=== PATIENT | female | born 1930 | race African-American/Black ===

== ENCOUNTER 2016-12-21 16:50 | Inpatient (IN) | payer MEDICARE, BC ==
--- NOTE | ~2016-12-21 | HP ---
History And Physical [place] [id number] [facility] [place]. [address] NAME: JENN SUAREZ : [birth year] STATUS : ADM IN [facility]#: [id number] AGE: 86 ADM/REG DATE : 12/21/16 MR#: [id number] REPORT SERV DATE: 12/22/16 DICTATED BY: WEN CRUZ DATE: 12/22/16 REPORT STATUS : Draft TRANSCRIBED BY: MODL DATE: 12/22/16 DATE OF ADMISSION: 12/21/2016 CHIEF COMPLAINT: Elevated heart rate, sent from clinic. HISTORY OF PRESENT ILLNESS: The patient is an 86-year-old female with past medical history of atrial fibrillation, pacer history, esophageal stricture history, coronary artery disease with PCI pacemaker for sick sinus syndrome, COPD, chronic diastolic heart failure, chronic elevated troponin, CKD, and anticoagulation for atrial fibrillation with Eliquis who presents after having increased heart rate, told to be in atrial fibrillation with RVR, and subsequent increased weakness. The patient is accompanied by family member who also reports that the patient has had significant amount of sinus congestion with increased pain in sinus passages, went to her clinic appointment today, and was told that she had elevated heart rate, presumptive in clinic of her atrial fibrillation with RVR and additionally thrush. Symptoms of heart rate were mild but weakness has been moderate, and sinusitis has been moderate. The patient does have pain with pressure at the sinus areas. No chest pain or radiating symptoms but has had mild nausea, no vomiting. No fevers or chills. No diarrhea, but has been pronounced weak, has had palpitation type feelings, but no wheezing. Symptoms of heart rate, there were no worsening symptoms but no relieving symptoms either. The patient has had mild change in appetite secondary to pain in nasal passage and overall generalized weakness. Symptoms are still currently present. REVIEW OF SYSTEMS: GENERAL: No fevers or chills, but positive for weakness. EYES: No eye pain or visual changes. ENT: Sinus congestion pain, tenderness on left side of nares and pain. NEURO: Positive headache from sinus pain but no confusion. SKIN: No rash or bruising. RESPIRATORY: No shortness of breath or dyspnea on exertion. CV: Does have rapid heart rate, edema. No current chest pain. GI: No nausea or vomiting. : No dysuria or hematuria. MUSCULOSKELETAL: Myalgias, arthralgias above baseline. ENDO: Does have increased fatigue. No polyuria. HEME: No recurrent bleeding or bruising. IMMUNOLOGIC: Positive for rhinorrhea. PSYCH: No anxiety or confusion. PAST MEDICAL HISTORY: Noted for chronic esophagitis and esophageal stricture, followed by Dr. Howe, atrial fibrillation on Eliquis and coronary disease with PCI, pacemaker for sick sinus syndrome, followed by Dr. Newberry. COPD, currently was presumably smoking followed by Dr. Hernandes, hypertension, peripheral arterial disease, DVT, history of the past chronic diastolic heart failure, chronic troponinemia, and CKD followed by Dr. Earl. SOCIAL HISTORY: Seventy pack-year smoking history. No alcohol or illicits. History And Physical [address] [address] NAME: JENN SUAREZ : [birth year] STATUS : ADM IN [facility]#: [id number] AGE: 86 ADM/REG DATE : 12/21/16 MR#: [id number] REPORT SERV DATE: 12/22/16 DICTATED BY: WEN CRUZ DATE: 12/22/16 REPORT STATUS : Draft TRANSCRIBED BY: AL DATE: 12/22/16 SURGICAL HISTORY: PCI pacemaker, abdominal hysterectomy. ALLERGIES: TO LISINOPRIL AND CEFADROXIL. HOME MEDICATIONS: DuoNeb, Ventolin, Eliquis, Symbicort, BuSpar, Cipro, Plavix, Pepcid, Uloric, fentanyl, Lasix, Neurontin, Ativan, Singulair, Percocet, Protonix, potassium, Crestor and lxaw-rtq-oldgloc gel. FAMILY HISTORY: Stroke and cancer. PHYSICAL EXAMINATION: VITAL SIGNS: The patient's blood pressure 117/76, temperature 97.3, pulse ranging from 103 to 115, respirations 16, and O2 sats 98%. GENERAL: Elderly frail, obese. EYES: No scleral icterus. EOMI. ENT: Does have left-sided nares tenderness with erythema, does have maxillary tenderness, congestion, poor dentition and oral thrush. NECK: Supple without JVD. RESPIRATORY: Clear to auscultation in upper lung montalvo. No wheezes. CHEST: Equal chest expansion. CV: Irregularly irregular and tachycardic. No rubs. Bilateral edema. GI: Soft, nontender, nondistended. Bowel sounds positive. Negative fluid wave. : Deferred. MUSCULOSKELETAL: Moves all extremities x4. SKIN: Warm and dry. LYMPH: Bilateral 2+ to 3+ edema. HEME: No bleeding or bruising. NEURO: Alert and oriented. Moves all extremities x4, but does have weakness in lower extremities secondary to edema. PSYCH: Appropriate mood and affect. DATA: EKG: [place] flutter with rate 103, QTc 429, low voltage criteria. WBC count 18.1, H and H 12.7/39.4, MCV 77, platelets 233. PA and lateral; mild cardiomegaly pacer. No acute findings. BNP 1407. Urinalysis; trace leukocyte esterase, negative nitrites, few bacteria. ASSESSMENT AND PLAN: 1. Atrial flutter/atrial fibrillation. 2. Elevated BNP. 3. Sinusitis. 4. Troponin elevation. 5. Chronic kidney disease. 6. Systemic inflammatory response syndrome. 7. Irregular CT. 8. Sick sinus syndrome. 9. Thrush. History And Physical [address] [address] NAME: JENN SUAREZ : [birth year] STATUS : ADM IN [facility]#: [id number] AGE: 86 ADM/REG DATE : 12/21/16 MR#: [id number] REPORT SERV DATE: 12/22/16 DICTATED BY: WEN CRUZ DATE: 12/22/16 REPORT STATUS : Draft TRANSCRIBED BY: AL DATE: 12/22/16 PLAN: 1. For atrial flutter, atrial fibrillation discussed with ED. Her ED has discussed with Dr. Trenton Newberry, did initiation. Recommend further workup for sinusitis, possible trigger for decompensation of atrial fibrillation. The patient has not been on rate controlling medications due to hypotensive blood pressure history but is currently still on anticoagulation with Eliquis. 2. Elevated BNP, does have diastolic component but family does not report having heart failure. Last echocardiogram 55% to 60% in December 2015, does have chronic elevated troponin. I will repeat echocardiogram. I will ask Dr. Newberry evaluation, may require repeating echocardiogram, likely multifactorial with flutter pattern, chronic elevated troponin, and CKD status. 3. Sinusitis. Antibiotics. Check cultures and procalcitonin. 4. Troponin elevation. She does have chronic troponin elevation but slightly above baseline on serial troponins, currently on Eliquis. 5. CKD. Follows with Dr. Earl, monitor. 6. SIRS, antibiotic treatment for sinusitis and thrush, does have tachycardia, and leukocytosis. 7. Irregular CT, is currently following Dr. Hernandes's surveillance. Follow up PCP. 8. Sick sinus syndrome. Does have pacer. 9. Thrush, nystatin. 10.Disposition; pending results and treatment from above. I anticipate greater than two midnight inpatient stay. DDN/MODL Wen Cruz MD / [id number] CC: Melita Menendez M.D.
--- NOTE | ~2016-12-21 | DS ---
Discharge Summary [facility] [address] [place]. [address] NAME: EJNN SUAREZ : [birth year] STATUS : DIS IN PAT#: [id number] AGE: 86 ADM/REG DATE : 12/21/16 MR#: [id number] REPORT SERV DATE: 12/29/16 DICTATED BY: MARCUS ANN DATE: 12/28/16 REPORT STATUS : Draft TRANSCRIBED BY: MODL DATE: 12/28/16 ADMISSION DATE: 12/21/2016 DISCHARGE DATE: 12/28/2016 REASON FOR ADMISSION: Atrial fibrillation with RVR and acute on chronic diastolic heart failure exacerbation. HISTORY OF PRESENT ILLNESS: Please refer Dr. Cesar Noland's history and physical dated 12/21/2016 for complete details regarding the patient's admission. In brief, the patient was admitted to the Hospitalist Service for management of her atrial fibrillation with RVR, acute on chronic diastolic heart failure exacerbation, and sinusitis. HOSPITAL COURSE: The patient had an uncomplicated hospital course. 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 He had recommended a one-time diuresis with IV diuretics, which had worked. He had started her on digoxin to help with rate control. She is now rate controlled. She did have some hypotensive episodes for which she received some IV fluids. She continued to complain of some nose pain and described what felt like sinusitis. She was started on antibiotics, but it was not improving. I obtained a CT scan of her head and sinuses, which showed clear sinuses. CT scan of the head showed mild atrophy and chronic white matter gliosis. Given the fact that this patient had clear sinuses, we stopped her antibiotics and started her on Flonase and it eventually helped out her nose pain. She worked with Physical Therapy, who recommended rehab, and we are discharging her today to [facility] for rehab as we are waiting for a bed to become available. She has reached maximal hospitalization and will be discharged to rehab in stable condition. DISCHARGE DIAGNOSES: Nose pain; atrial fibrillation with rapid ventricular response, now controlled; chronic kidney disease stage 3; debility; history of sick sinus syndrome; carotid artery disease. PROCEDURES: Include CT scan of the head, CT scan of the sinuses. CONSULTATION: Dr. Newberry. DISCHARGE MEDICATIONS: Include Eliquis 2.5 mg twice a day, BuSpar 5 mg three times a day, Plavix 75 mg daily, fentanyl patch every 72 hours, Singulair 10 mg daily, Protonix 40 mg daily, Symbicort daily, albuterol daily, DuoNebs p.r.n., Crestor 20 mg at bedtime, Neurontin 300 mg p.r.n. pain, Lasix 40 mg a day, Uloric 40 mg p.r.n., Ativan 1 mg at bedtime as needed for sleep, Pepcid 20 mg. We are holding her potassium chloride and her Percocet, as she did not require any in the hospital. She will follow up with Dr. Newberry as scheduled. Spending over 30 minutes in discharge planning and coordination of care on Ms. Suarez. REGAN/AL Discharge Summary [address] [address] NAME: JENN SUAREZ : [birth year] STATUS : DIS IN PAT#: [id number] AGE: 86 ADM/REG DATE : 12/21/16 MR#: [id number] REPORT SERV DATE: 12/29/16 DICTATED BY: MARCUS ANN DATE: 12/28/16 REPORT STATUS : Draft TRANSCRIBED BY: AL DATE: 12/28/16 Marcus Ann MD / [id number] CC: MD Phoenix Chavarria M.D.
--- NOTE | ~2016-12-21 | CN ---
Consultation Report [facility] [address] [place]. [address] NAME: JENN SUAREZ : [birth year] STATUS : ADM IN PAT#: [id number] AGE: 86 ADM/REG DATE : 12/21/16 MR#: [id number] REPORT SERV DATE: 12/22/16 DICTATED BY: HAVEN NEWBERRY DATE: 12/22/16 REPORT STATUS : Draft TRANSCRIBED BY: MODL DATE: 12/22/16 CONSULTATION DATE OF CONSULTATION: 12/22/2016 REASON FOR CONSULTATION: Atrial fibrillation/flutter and presumed congestive heart failure. HPI: This is an 86-year-old woman, followed by Dr. Phoenix Burgos, known to me from prior care, has history of chronic diastolic LV failure and systolic LV failure recently with 07/03 left ventriculography demonstrating LVEF 40%, paroxysmal atrial fibrillation and flutter with [id number] score of at least 4 and on low-dose Eliquis, peripheral vascular disease, type 2 diabetes, hypertension, chronic kidney disease class 3 or 4, mild aortic stenosis, and carotid disease. The patient presented to the emergency room yesterday with increased shortness of breath. She was found to have atrial fibrillation with rapid ventricular response. Ventricular rate was slowed with digoxin administration. She feels well now. In general, the patient denies recent chest pain. She has been compliant with medications by report. PAST MEDICAL HISTORY: 1. PVD-bilateral SFA occlusions with mildly diminished ABIs. 2. DM2. 3. Hypertension. 4. Remote cigarette smoker. 5. Dyslipidemia. 6. CAD-2.25 x 12 Taxus Atom stent to mid AV groove circumflex artery remotely; 4.0 x 15 Xience stent proximal RCA remotely, 07/03 catheterization with ulceration proximal LAD, widely patent AV groove circumflex stent and luminal irregularities in right coronary artery. 7. Chronic LV diastolic failure. 8. LV systolic failure-07/03 LVEF 40%. 9. Sleep apnea-treated. 10.Chronic kidney disease-12/04, EGFR 23. 11.Peripheral neuropathy. 12.Sick sinus syndrome-permanent pacemaker followed [facility]. 13.COPD. 14.Atrial fibrillation and flutter-05/01 [id number] score of 6 and on Eliquis. 15.Gouty arthritis. 16.Aortic stenosis-06/02 echo estimating aortic valve area 2.1 cm2. 17.Carotid disease-12/31 duplex with less than 50% bilateral ICA stenoses. 18.Stroke-12/31 presumed stroke with [facility] admission. Consultation Report [place] [id number] [place]. [address] NAME: JENN SUAREZ : [birth year] STATUS : ADM IN PAT#: [id number] AGE: 86 ADM/REG DATE : 12/21/16 MR#: [id number] REPORT SERV DATE: 12/22/16 DICTATED BY: HAVEN NEWBERRY DATE: 12/22/16 REPORT STATUS : Draft TRANSCRIBED BY: AL DATE: 12/22/16 HOME MEDICATIONS: Singulair 10 mg daily, oxycodone/APAP 10/325 three times a day p.r.n., lorazepam 1 mg p.r.n., Protonix 40 mg daily, fentanyl 50 mcg/hr patch q.72 hours, Colace 100 mg b.i.d., gabapentin 300 mg twice a day, Mucinex 600 mg extended release, mirtazapine 15 mg once a day, albuterol sulfate 2 puffs every 4 hours p.r.n., Ventolin inhaler 2 puffs every 4 hours p.r.n., Symbicort 160/4.5 mcg/act, Plavix 75 mg daily, BuSpar 5 mg t.i.d., Crestor 20 mg daily, Eliquis 2.5 mg b.i.d., Lasix 60 mg q.a.m. and 40 mg q.p.m., glipizide XL 5 mg daily, Uloric 40 mg daily, KCl 10 mEq b.i.d., lidocaine patch p.r.n. ALLERGIES: TO LISINOPRIL AND CEFADROXIL. SOCIAL HISTORY: The patient is . She is a former smoker. She does not drink alcohol. FAMILY HISTORY: No first-degree relatives with history of premature coronary artery disease. REVIEW OF SYSTEMS: Chronic weakness. PHYSICAL EXAMINATION: GENERAL: Weak but in no acute distress. VITAL SIGNS: 126/63, respirations 16, temperature 97.0, pulse 90 and regular. LUNGS: Diminished breath sounds at bases. NECK: No bruit. CARDIAC: III/ systolic murmur. EXTREMITIES: Bilateral leg cuffs. LABORATORY DATA: BUN and creatinine 52 and 1.76 yielding EGFR 29. White blood cell count 17,600, hematocrit 38.9%, platelet count 227. BNP 1407. TSH 1.36. Troponin-I 1.26, 1.29, 1.62. EKG, atrial flutter with high-grade block, ventricular rate 100, QS complexes V1 through V5 consistent with age indeterminate anterior wall myocardial infarction. ASSESSMENT AND PLAN: 1. Positive troponin-suspect type 2 myocardial infarction due to high ventricular rate in atrial fibrillation/flutter. We will continue Plavix. Serial markers. If necessary, may proceed with myocardial perfusion imaging and/or cardiac catheterization though renal function may be prohibitive of contrast administration. 2. Paroxysmal atrial fibrillation/flutter-now rate controlled after digoxin. We will continue Eliquis given [id number] score of 6. 3. Acute LV diastolic and systolic heart failure-better after diuresis. We will avoid NOE inhibitors. Get an ARB given her chronic kidney disease. 4. Sick-sinus syndrome-permanent pacemaker noted. 5. Elevated cholesterol-treated. 6. Chronic obstructive pulmonary disease-noted. Consultation Report [address] [address] NAME: JENN SUAREZ : [birth year] STATUS : ADM IN [facility]#: [id number] AGE: 86 ADM/REG DATE : 12/21/16 MR#: [id number] REPORT SERV DATE: 12/22/16 DICTATED BY: HAVEN NEWBERRY. DATE: 12/22/16 REPORT STATUS : Draft TRANSCRIBED BY: MODL DATE: 12/22/16 7. Hypertension-reasonable values noted today. 8. Chronic kidney disease-3 and 4-noted. 9. Aortic stenosis-mild. Thank you for this consultation. /AL Haven Newberry M.D. / [id number] CC: Melita Menendez M.D.
[2016-12-21 12:31] LABS: BASOPHILS 0.1 %; BASOPHILS ABSOLUTE 0.01 10/3/uL (0.0-0.16); EOSINOPHILS 0.1 %; EOSINOPHILS ABSOLUTE 0.01 10/3/uL (0.0-0.53); ER CBC TAT 0 Hrs 05 Mins; HEMATOCRIT 39.4 % (36.0-48.0); HEMOGLOBIN 12.7 g/dL (12.0-16.0); IMMATURE GRANULOCYTES 0.6 %; IMMATURE GRANULOCYTES ABSOLUTE 0.11 10/3/uL (0.0-0.11); LYMPHOCYTES 9.1 %; LYMPHOCYTES ABSOLUTE 1.65 10/3/uL (0.67-4.30); MANUAL DIFF NO %; MEAN CORPUS HGB CONC 32.2 g/dL (32.0-36.0); MEAN CORPUSCULAR HEMOGLOB 24.8 pg (26.0-34.0); MEAN PLATELET VOLUME 9.9 fL (9.2-13.0); MONOCYTES 7.1 %; MONOCYTES ABSOLUTE 1.28 10/3/uL (0.21-1.20); NEUTROPHILS ABSOLUTE 15.08 10/3/uL (2.02-8.40); PLATELET COUNT 233 10/3/uL (150-400); RBC DISTRIBUTION WIDTH 16.3 % (12.0-16.0); RED CELL COUNT 5.12 10/6/uL (4.0-5.6); WHITE BLOOD CELLS 18.1 10/3/uL (4.5-10.5)
[2016-12-21 12:38] LABS: INTERNATIONAL NORMAL RATI 1.3 UNITS (-); PARTIAL THROMBO TIME 24.6 SEC (22.5-37.2); PROTIME (NOT ORD) 16.3 SEC (12.0-14.5)
[2016-12-21 12:48] LABS: BUN (BLOOD UREA NITROGEN) 57 MG/DL (6-23); CHLORIDE, SERUM 92 MMOL/L (96-112); CO2 (CARBON DIOXIDE) 34 MMOL/L (24-34); CREATININE 1.99 MG/DL (0.55-1.02); GFR AFRICAN AMERICAN 25 ML/MIN (>=60); GFR NON AFRICAN AMERICAN 22 ML/MIN (>=60); GLUCOSE, SERUM 220 MG/DL (60-99); POTASSIUM, SERUM 4.8 MMOL/L (3.5-5.3); SODIUM, SERUM 134 MMOL/L (135-148)
[2016-12-21 12:49] LABS: CHEST PAIN PROFILE TAT 0 Hrs 23 Mins; TROPONIN I 1.26 NG/ML (<0.05)
[~2016-12-21 16:50] MED LIST: *UNABLE1; ALBUTEROL5 INH; ASA5GR PO; ASAB PO; ASABAYER PO; ATRONASAL6 NAS; ATV.5 PO; ATV1 PO; AVAP150 PO; AVAPRO; AVAPRO75 PO; BLINK EYE OPH; BUM2 PO; BUSPAR5 PO; CELEBREX2 PO; CIP2 PO; COLCRYS0.6 MG PO; CRESTOR; CRESTOR20 MG PO; CRESTOR40 MG PO; CYMBALTA30 PO; DCN100 PO; DULERA 200 MCG/13 GM INH; DUONEB INH; DURA25 TOP; DURA50 TOP; DURICEF PO; ELIQUIS 2.5 MG2.5 MG PO; GAS-X80 MG PO; GLUCATROL; GLUCOTROL5 PO; GLUCXL5 PO; KEPPRA250 PO; KLOR-CON 1010 MEQ PO; KLOR-CON M1010 MEQ PO; L20 PO; L40 PO; LEVSINTAB PO/SL; LEVSINTAB SL; LEXAPRO20 PO; LIDODERM T; LIDODERM TOP; LIQUID TEARS OPH; METHOC500B PO; NEUR300 PO; NEXIUM40 PO; OTC PAIN CREAM TOP; PEP20 PO; PERCOCET 10/3251 TAB PO; PERCOCET1 TA4 PO; PLAVIX PO; PROAIR HFA INH; PROTONIX PO; PROVENTSOL INH; REM15 PO; RESCUE INHALER PO; SINGULAIR1 PO; SYMAX-SL0.125 MG PO; SYMBICORT; SYMBICORT 160/41 INH INH; T200 PO; TAGAMET 200 MG200 MG PO; TOPXL25 PO; ULORIC40 MG PO; VENTOLIN HFA INH; VENTOLIN HFA PO; VITC500 PO; VITD PO; Z100 PO
[2016-12-21 17:30] LABS: ASCORBIC ACID (UR NOT ORDER) NEG (NEG); BILIRUBIN, URINE NEGATIVE (NEG); ER URINALYSIS TAT 0 Hrs 22 Mins; KETONE, URINE NEGATIVE (NEG); LEUKOCYTE ESTERASE(NOT OR TRACE (NEG); NITRITE (URINE) NEG (NEG); WBC (NOT ORDERED) (RFLEX) 3 (0-5)
[2016-12-21 21:46] LABS: SGOT(AST) 49 U/L (5-40); SGPT(ALT) 84 U/L (5-65); TOTAL PROTEIN 7.3 G/DL (6.0-8.5)
[2016-12-21 21:48] LABS: A/G RATIO 0.8 (0.7-1.9); ALBUMIN 3.3 G/DL (3.5-5.0); ALKALINE PHOSPHATASE 93 U/L (45-117); PHOSPHORUS, SERUM 3.7 MG/DL (2.5-4.5); TOTAL BILIRUBIN 0.5 MG/DL (0-1.2)
[2016-12-21 22:23] LABS: PROCALCITONIN 0.07 ng/mL (<0.5)
[2016-12-22 05:34] LABS: BASOPHILS 0.1 %; BASOPHILS ABSOLUTE 0.01 10/3/uL (0.0-0.16); EOSINOPHILS 0.2 %; EOSINOPHILS ABSOLUTE 0.04 10/3/uL (0.0-0.53); HEMATOCRIT 38.9 % (36.0-48.0); HEMOGLOBIN 12.7 g/dL (12.0-16.0); IMMATURE GRANULOCYTES 0.5 %; IMMATURE GRANULOCYTES ABSOLUTE 0.08 10/3/uL (0.0-0.11); LYMPHOCYTES 9.2 %; LYMPHOCYTES ABSOLUTE 1.62 10/3/uL (0.67-4.30); MEAN CORPUS HGB CONC 32.6 g/dL (32.0-36.0); MEAN CORPUSCULAR HEMOGLOB 25.5 pg (26.0-34.0); MEAN CORPUSCULAR VOLUME 78.1 fL (80-100); MEAN PLATELET VOLUME 10.3 fL (9.2-13.0); NEUTROPHILS ABSOLUTE 14.43 10/3/uL (2.02-8.40); NUCLEATED RED BLOOD CELLS 0.3 /100WBC (0-0); PLATELET COUNT 227 10/3/uL (150-400); RBC DISTRIBUTION WIDTH 16.3 % (12.0-16.0); RED CELL COUNT 4.98 10/6/uL (4.0-5.6); WHITE BLOOD CELLS 17.6 10/3/uL (4.5-10.5)
[2016-12-22 05:36] LABS: MANUAL DIFF NO %
[2016-12-22 05:44] LABS: A/G RATIO 0.8 (0.7-1.9); ALBUMIN 2.9 G/DL (3.5-5.0); CALCIUM, SERUM 9.5 MG/DL (8.5-10.4); CHLORIDE, SERUM 94 MMOL/L (96-112); CO2 (CARBON DIOXIDE) 31 MMOL/L (24-34); CREATININE 1.76 MG/DL (0.55-1.02); GFR AFRICAN AMERICAN 29 ML/MIN (>=60); GFR NON AFRICAN AMERICAN 25 ML/MIN (>=60); GLOBULIN 3.7 G/DL (2.5-4.1); SGOT(AST) 39 U/L (5-40); SGPT(ALT) 58 U/L (5-65); SODIUM, SERUM 134 MMOL/L (135-148); TOTAL BILIRUBIN 0.9 MG/DL (0-1.2); TOTAL PROTEIN 6.6 G/DL (6.0-8.5)
[2016-12-22 05:45] LABS: ALKALINE PHOSPHATASE 76 U/L (45-117); BUN (BLOOD UREA NITROGEN) 52 MG/DL (6-23); GLUCOSE, SERUM 171 MG/DL (60-99); TROPONIN I 1.62 NG/ML (<0.05)
[2016-12-23 05:33] LABS: BASOPHILS 0.1 %; BASOPHILS ABSOLUTE 0.01 10/3/uL (0.0-0.16); EOSINOPHILS 0.1 %; EOSINOPHILS ABSOLUTE 0.01 10/3/uL (0.0-0.53); HEMATOCRIT 37.8 % (36.0-48.0); HEMOGLOBIN 12.3 g/dL (12.0-16.0); IMMATURE GRANULOCYTES 0.4 %; IMMATURE GRANULOCYTES ABSOLUTE 0.05 10/3/uL (0.0-0.11); LYMPHOCYTES 7.2 %; MEAN CORPUS HGB CONC 32.5 g/dL (32.0-36.0); MEAN CORPUSCULAR HEMOGLOB 25.5 pg (26.0-34.0); MEAN CORPUSCULAR VOLUME 78.3 fL (80-100); MEAN PLATELET VOLUME 9.8 fL (9.2-13.0); MONOCYTES 6.7 %; MONOCYTES ABSOLUTE 0.94 10/3/uL (0.21-1.20); NEUTROPHILS 85.5 %; NEUTROPHILS ABSOLUTE 11.97 10/3/uL (2.02-8.40); NUCLEATED RED BLOOD CELLS 0.3 /100WBC (0-0); PLATELET COUNT 196 10/3/uL (150-400); RBC DISTRIBUTION WIDTH 16.2 % (12.0-16.0); RED CELL COUNT 4.83 10/6/uL (4.0-5.6)
[2016-12-23 05:34] LABS: MANUAL DIFF NO %
[2016-12-23 05:40] LABS: CALCIUM, SERUM 9.4 MG/DL (8.5-10.4); CHLORIDE, SERUM 92 MMOL/L (96-112); CO2 (CARBON DIOXIDE) 32 MMOL/L (24-34); GFR AFRICAN AMERICAN 31 ML/MIN (>=60); GFR NON AFRICAN AMERICAN 26 ML/MIN (>=60); SODIUM, SERUM 135 MMOL/L (135-148)
[2016-12-23 05:50] LABS: BUN (BLOOD UREA NITROGEN) 44 MG/DL (6-23); GLUCOSE, SERUM 120 MG/DL (60-99); PHOSPHORUS, SERUM 2.7 MG/DL (2.5-4.5)
[2016-12-23 09:48] LABS: DIGOXIN 2.5 NG/ML (0.8-2.0); TROPONIN I 2.23 NG/ML (<0.05)
[2016-12-24 05:18] LABS: BASOPHILS 0 %; EOSINOPHILS 0.5 %; EOSINOPHILS ABSOLUTE 0.04 10/3/uL (0.0-0.53); HEMATOCRIT 35.7 % (36.0-48.0); HEMOGLOBIN 11.3 g/dL (12.0-16.0); IMMATURE GRANULOCYTES 0.2 %; IMMATURE GRANULOCYTES ABSOLUTE 0.02 10/3/uL (0.0-0.11); LYMPHOCYTES 14.3 %; LYMPHOCYTES ABSOLUTE 1.16 10/3/uL (0.67-4.30); MEAN CORPUS HGB CONC 31.7 g/dL (32.0-36.0); MEAN CORPUSCULAR HEMOGLOB 25.5 pg (26.0-34.0); MEAN CORPUSCULAR VOLUME 80.4 fL (80-100); MEAN PLATELET VOLUME 9.8 fL (9.2-13.0); MONOCYTES 9.6 %; MONOCYTES ABSOLUTE 0.78 10/3/uL (0.21-1.20); NEUTROPHILS 75.4 %; NEUTROPHILS ABSOLUTE 6.14 10/3/uL (2.02-8.40); PLATELET COUNT 171 10/3/uL (150-400); RBC DISTRIBUTION WIDTH 16.4 % (12.0-16.0); RED CELL COUNT 4.44 10/6/uL (4.0-5.6)
[2016-12-24 05:19] LABS: MANUAL DIFF NO %; WHITE BLOOD CELLS 8.1 10/3/uL (4.5-10.5)
[2016-12-24 05:41] LABS: BUN (BLOOD UREA NITROGEN) 43 MG/DL (6-23); CALCIUM, SERUM 8.8 MG/DL (8.5-10.4); CHLORIDE, SERUM 95 MMOL/L (96-112); CO2 (CARBON DIOXIDE) 31 MMOL/L (24-34); CREATININE 1.85 MG/DL (0.55-1.02); GFR AFRICAN AMERICAN 28 ML/MIN (>=60); GFR NON AFRICAN AMERICAN 24 ML/MIN (>=60); PHOSPHORUS, SERUM 3.3 MG/DL (2.5-4.5); POTASSIUM, SERUM 3.9 MMOL/L (3.5-5.3); SODIUM, SERUM 136 MMOL/L (135-148)
[2016-12-24 05:45] LABS: DIGOXIN 1.8 NG/ML (0.8-2.0); GLUCOSE, SERUM 197 MG/DL (60-99)
[2016-12-25 06:42] LABS: BASOPHILS 0.1 %; BASOPHILS ABSOLUTE 0.01 10/3/uL (0.0-0.16); EOSINOPHILS 0.8 %; EOSINOPHILS ABSOLUTE 0.07 10/3/uL (0.0-0.53); HEMATOCRIT 35.1 % (36.0-48.0); HEMOGLOBIN 11.2 g/dL (12.0-16.0); IMMATURE GRANULOCYTES 0.3 %; IMMATURE GRANULOCYTES ABSOLUTE 0.03 10/3/uL (0.0-0.11); LYMPHOCYTES 16.8 %; LYMPHOCYTES ABSOLUTE 1.52 10/3/uL (0.67-4.30); MEAN CORPUS HGB CONC 31.9 g/dL (32.0-36.0); MEAN CORPUSCULAR HEMOGLOB 25.4 pg (26.0-34.0); MEAN CORPUSCULAR VOLUME 79.6 fL (80-100); MEAN PLATELET VOLUME 10.4 fL (9.2-13.0); MONOCYTES 6.6 %; NEUTROPHILS 75.4 %; NEUTROPHILS ABSOLUTE 6.82 10/3/uL (2.02-8.40); PLATELET COUNT 184 10/3/uL (150-400); RBC DISTRIBUTION WIDTH 16.7 % (12.0-16.0); RED CELL COUNT 4.41 10/6/uL (4.0-5.6); WHITE BLOOD CELLS 9.1 10/3/uL (4.5-10.5)
[2016-12-25 06:47] LABS: MANUAL DIFF NO %
[2016-12-25 07:08] LABS: BUN (BLOOD UREA NITROGEN) 40 MG/DL (6-23); CALCIUM, SERUM 8.7 MG/DL (8.5-10.4); CHLORIDE, SERUM 98 MMOL/L (96-112); CO2 (CARBON DIOXIDE) 28 MMOL/L (24-34); CREATININE 1.59 MG/DL (0.55-1.02); DIGOXIN 1.7 NG/ML (0.8-2.0); GFR AFRICAN AMERICAN 33 ML/MIN (>=60); GFR NON AFRICAN AMERICAN 29 ML/MIN (>=60); GLUCOSE, SERUM 171 MG/DL (60-99); PHOSPHORUS, SERUM 2.6 MG/DL (2.5-4.5); SODIUM, SERUM 135 MMOL/L (135-148)
[2016-12-26 06:40] LABS: BUN (BLOOD UREA NITROGEN) 39 MG/DL (6-23); CALCIUM, SERUM 8.7 MG/DL (8.5-10.4); CHLORIDE, SERUM 98 MMOL/L (96-112); CO2 (CARBON DIOXIDE) 28 MMOL/L (24-34); CREATININE 1.78 MG/DL (0.55-1.02); GFR AFRICAN AMERICAN 29 ML/MIN (>=60); GFR NON AFRICAN AMERICAN 25 ML/MIN (>=60); PHOSPHORUS, SERUM 2.2 MG/DL (2.5-4.5); POTASSIUM, SERUM 3.9 MMOL/L (3.5-5.3); SODIUM, SERUM 134 MMOL/L (135-148)
[2016-12-26 06:44] LABS: GLUCOSE, SERUM 211 MG/DL (60-99)
[2016-12-26 06:56] LABS: BASOPHILS 0.1 %; BASOPHILS ABSOLUTE 0.01 10/3/uL (0.0-0.16); EOSINOPHILS ABSOLUTE 0.09 10/3/uL (0.0-0.53); HEMATOCRIT 34.7 % (36.0-48.0); HEMOGLOBIN 11.1 g/dL (12.0-16.0); IMMATURE GRANULOCYTES 0.5 %; IMMATURE GRANULOCYTES ABSOLUTE 0.04 10/3/uL (0.0-0.11); LYMPHOCYTES 15.7 %; LYMPHOCYTES ABSOLUTE 1.39 10/3/uL (0.67-4.30); MEAN CORPUSCULAR HEMOGLOB 25.5 pg (26.0-34.0); MEAN CORPUSCULAR VOLUME 79.8 fL (80-100); MEAN PLATELET VOLUME 10.5 fL (9.2-13.0); MONOCYTES 6.3 %; MONOCYTES ABSOLUTE 0.56 10/3/uL (0.21-1.20); NEUTROPHILS 76.4 %; NEUTROPHILS ABSOLUTE 6.76 10/3/uL (2.02-8.40); PLATELET COUNT 195 10/3/uL (150-400); RBC DISTRIBUTION WIDTH 16.9 % (12.0-16.0); RED CELL COUNT 4.35 10/6/uL (4.0-5.6); WHITE BLOOD CELLS 8.9 10/3/uL (4.5-10.5)
[2016-12-26 06:57] LABS: MANUAL DIFF NO %
[2016-12-27 07:43] LABS: HEMATOCRIT 32.8 % (36.0-48.0); HEMOGLOBIN 10.8 g/dL (12.0-16.0); MEAN CORPUS HGB CONC 32.9 g/dL (32.0-36.0); MEAN CORPUSCULAR HEMOGLOB 26.1 pg (26.0-34.0); MEAN CORPUSCULAR VOLUME 79.2 fL (80-100); MEAN PLATELET VOLUME 10.5 fL (9.2-13.0); NUCLEATED RED BLOOD CELLS 1.6 /100WBC (0-0); PLATELET COUNT 195 10/3/uL (150-400); RED CELL COUNT 4.14 10/6/uL (4.0-5.6); WHITE BLOOD CELLS 9.3 10/3/uL (4.5-10.5)
[2016-12-27 07:44] LABS: MANUAL DIFF YES %
[2016-12-27 08:23] LABS: BUN (BLOOD UREA NITROGEN) 37 MG/DL (6-23); CALCIUM, SERUM 8.4 MG/DL (8.5-10.4); CHLORIDE, SERUM 100 MMOL/L (96-112); CO2 (CARBON DIOXIDE) 25 MMOL/L (24-34); GFR AFRICAN AMERICAN 31 ML/MIN (>=60); GFR NON AFRICAN AMERICAN 26 ML/MIN (>=60); GLUCOSE, SERUM 203 MG/DL (60-99); POTASSIUM, SERUM 4.5 MMOL/L (3.5-5.3); SODIUM, SERUM 135 MMOL/L (135-148)
[2016-12-27 09:50] LABS: ANISOCYTOSIS 1+ (5-10/OIF) (0-5/OIF); BAND NEUTROPHILS 5 %; EOSINOPHILS 1 %; EOSINOPHILS ABSOLUTE (CALC) 0.09 10/3/uL (0.0-0.53); IMMATURE GRANS ABSOLUTE (CALC) 0.19 10/3/uL (0.0-0.11); LYMPHOCYTES 19 %; LYMPHOCYTES ABSOLUTE (CALC) 1.77 10/3/uL (0.67-4.30); METAMYELOCYTES 2 %; MONOCYTES 9 %; MONOCYTES ABSOLUTE (CALC) 0.84 10/3/uL (0.21-1.20); NEUTROPHILS ABSOLUTE (CALC) 6.42 10/3/uL (2.02-8.40); PLATELET ESTIMATE ADQ (ADEQUATE); POLYCHROMASIA 1+ (2-5/OIF) (0-1/OIF); SEGMENTED NEUTROPHIL (0) 64 %; TOTAL NUCLEATED CELLS 100
[2016-12-28 06:47] LABS: HEMOGLOBIN 11.1 g/dL (12.0-16.0); MEAN CORPUS HGB CONC 32.6 g/dL (32.0-36.0); MEAN CORPUSCULAR HEMOGLOB 25.3 pg (26.0-34.0); MEAN CORPUSCULAR VOLUME 77.4 fL (80-100); MEAN PLATELET VOLUME 10.4 fL (9.2-13.0); PLATELET COUNT 174 10/3/uL (150-400); RED CELL COUNT 4.39 10/6/uL (4.0-5.6); WHITE BLOOD CELLS 9.2 10/3/uL (4.5-10.5)
[2016-12-28 06:51] LABS: MANUAL DIFF YES %
[2016-12-28 07:01] LABS: BUN (BLOOD UREA NITROGEN) 35 MG/DL (6-23); CALCIUM, SERUM 8.6 MG/DL (8.5-10.4); CHLORIDE, SERUM 97 MMOL/L (96-112); CO2 (CARBON DIOXIDE) 23 MMOL/L (24-34); CREATININE 1.74 MG/DL (0.55-1.02); GFR AFRICAN AMERICAN 30 ML/MIN (>=60); GFR NON AFRICAN AMERICAN 26 ML/MIN (>=60); GLUCOSE, SERUM 171 MG/DL (60-99); PHOSPHORUS, SERUM 3.5 MG/DL (2.5-4.5); SODIUM, SERUM 134 MMOL/L (135-148)
[2016-12-28 07:03] LABS: POTASSIUM, SERUM 5.5 MMOL/L (3.5-5.3)
[2016-12-28 08:23] LABS: ANISOCYTOSIS 1+ (5-10/OIF) (0-5/OIF); BAND NEUTROPHILS 9 %; IMMATURE GRANS ABSOLUTE (CALC) 0.28 10/3/uL (0.0-0.11); LYMPHOCYTES 21 %; LYMPHOCYTES ABSOLUTE (CALC) 1.93 10/3/uL (0.67-4.30); METAMYELOCYTES 3 %; MONOCYTES 6 %; MONOCYTES ABSOLUTE (CALC) 0.55 10/3/uL (0.21-1.20); NEUTROPHILS ABSOLUTE (CALC) 6.44 10/3/uL (2.02-8.40); PLATELET ESTIMATE ADQ (ADEQUATE); SEGMENTED NEUTROPHIL (0) 61 %; TOTAL NUCLEATED CELLS 100
[2016-12-28 08:24] LABS: ELLIPTOCYTES 1+ (3-10/OIF) (0-2/OIF)
[2016-12-28 08:26] LABS: BURR CELLS 1+ (3-10/OIF) (0-2/OIF); POLYCHROMASIA 1+ (2-5/OIF) (0-1/OIF)
== END 2016-12-28 19:39 | DRG 291 ==
LOC: ER 16:50 → 7NO 18:37
PROVIDERS: Emergency Medicine; Internal Medicine; Internal Medicine Cardiovascular Disease; Student in an Organized Health Care Education/Training Program
DX: I13.0 Hypertensive heart and chronic kidney disease with heart failure and stage 1 through stage 4 chronic kidney disease, or unspecified chronic kidney disease (principal); I50.43 Acute on chronic combined systolic (congestive) and diastolic (congestive) heart failure; B37.0 Candidal stomatitis; I48.92 Unspecified atrial flutter; I49.5 Sick sinus syndrome; J44.9 Chronic obstructive pulmonary disease, unspecified; I24.8 Other forms of acute ischemic heart disease; I35.0 Nonrheumatic aortic (valve) stenosis; I48.91 Unspecified atrial fibrillation; N18.3 Chronic kidney disease, stage 3 (moderate); I73.9 Peripheral vascular disease, unspecified; E78.5 Hyperlipidemia, unspecified; M10.9 Gout, unspecified; Z86.73 Personal history of transient ischemic attack (TIA), and cerebral infarction without residual deficits; Z87.891 Personal history of nicotine dependence; Z95.0 Presence of cardiac pacemaker; J01.90 Acute sinusitis, unspecified; G89.4 Chronic pain syndrome
CPT/HCPCS: 70450; 70486; 71020; 80048; 80053; 80162; 81001; 82962; 83605; 83735; 83880; 84100; 84145; 84443; 84484; 85025; 85610; 85730; 87040; 87449; 93005; 94640; 96374; 97110-GO; 97162-GP; 97166-GO; 97530-GP; 97535-GO; 99285; A9270-GY; C8929; G8978-CK-GP; G8979-CJ-GP; G8987-CL-GO; G8988-CK-GO; J1160; Q9957